=== PATIENT | female | born 1960 | race Caucasian/White ===

== ENCOUNTER 2016-12-02 09:58 | Emergency (ER) ==
[2016-12-02 10:05] VITALS: BP 142/78
[2016-12-02] MEDS ORDERED: OXYCONTIN PO ONE (10:23)
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
== END 2016-12-02 11:05 | disposition home or self-care (01) ==
LOC: ED 09:58
DX: M54.2 Cervicalgia (principal); G89.29 Other chronic pain; M19.90 Unspecified osteoarthritis, unspecified site; Z79.899 Other long term (current) drug therapy
CPT/HCPCS: 99282